=== PATIENT | male | born 1950 | race Caucasian/White ===

== ENCOUNTER 2017-08-17 06:36 | Emergency (ER) | payer OTHER, MEDICARE ==
[~2017-08-17] VITALS: Ht 172.7 cm; Wt 78.1 kg
[~2017-08-17 06:36] MED LIST: AUGMENTIN875 MG PO; CELEBREX200 MG PO; CIPRO500 MG PO; CLONAZEPAM1 MG PO; FLUOXETINE HCL60 MG PO; HYDROCORTISONE30 G2 PR; OMEPRAZOLE40 M1 PO; PROZAC20 MG PO; VITAMIN D2000 UNI1 PO
[2017-08-17] MEDS ORDERED: ZITHROMAX250 MG PO (08:51)
[2017-08-17 09:14] VITALS: BP 128/86
== END 2017-08-17 09:40 | disposition home or self-care (01) ==
LOC: EME 06:36
DX: J32.9 Chronic sinusitis, unspecified (principal); R51 Headache; J02.9 Acute pharyngitis, unspecified; I10 Essential (primary) hypertension; Z85.46 Personal history of malignant neoplasm of prostate
CPT/HCPCS: 71020; 99281; 99284

== ENCOUNTER 2017-10-26 22:05 | Inpatient (IN) | payer OTHER, MEDICARE ==
[~2017-10-26] VITALS: Ht 182.9 cm; Wt 79.0 kg
[~2017-10-26 22:05] MED LIST changes: +ARTHRITIS PAIN650 M5 PO; +LUPRON DEPOT3.75 M1 IM; +METOPROLOL SUCC50 MG PO; +PROBIOTIC1 EAC3 PO; +TRAMADOL HCL50 MG PO; +ZITHROMAX250 MG PO
[2017-10-27 05:52] VITALS: BP 149/91
[2017-10-27 10:50] VITALS: BP 123/72
[2017-10-27 12:45] VITALS: BP 115/69
[2017-10-27 15:28] VITALS: BP 113/65
[2017-10-27 17:45] VITALS: BP 122/74
[2017-10-27 19:35] VITALS: BP 122/73
[2017-10-28 00:31] VITALS: BP 135/62
[2017-10-28 04:20] VITALS: BP 137/73
[2017-10-28 06:53] LABS: HEMATOCRIT 33.4 % (38.0-50.0); MCV 90.3 FL (86-99)
[2017-10-28 06:54] LABS: HEMOGLOBIN 11.2 G/DL (12.5-16.6)
[2017-10-28 08:00] VITALS: BP 130/68
[2017-10-28 12:06] VITALS: BP 117/78
[2017-10-28 15:43] VITALS: BP 127/77
[2017-10-28 20:20] VITALS: BP 123/71
[2017-10-29 00:05] VITALS: BP 131/74
[2017-10-29 04:22] VITALS: BP 120/79
[2017-10-29 08:07] VITALS: BP 113/68
[2017-10-29 08:31] LABS: HEMATOCRIT 32.1 % (38.0-50.0); HEMOGLOBIN 10.5 G/DL (12.5-16.6); MCV 91.2 FL (86-99)
[2017-10-29] MEDS ORDERED: ELIQUIS2.5 MG PO (08:55)
[2017-10-29] MEDS ORDERED: OXYCODONE HCL5 MG PO (08:55)
[2017-10-29] MEDS ORDERED: ONDANSETRON ODT4 MG PO (11:08)
[2017-10-29 12:51] VITALS: BP 113/64
[2017-10-29 12:58] VITALS: BP 113/64
== END 2017-10-29 17:19 | disposition home health service (06) | DRG 470 ==
LOC: ENRESERV 22:05 → 2SOUTH 10-27 05:19 → 3WEST 10-27 10:33 → 2SOUTH 10-27 15:38 → 3WEST 10-29 17:19
PROVIDERS: Orthopaedic Surgery
PROC: 0SRB02A Replacement of Left Hip Joint with Metal on Polyethylene Synthetic Substitute, Uncemented, Open Approach (ICD-10-PCS; principal; 2017-10-27)
DX: M16.12 Unilateral primary osteoarthritis, left hip (principal); Z85.46 Personal history of malignant neoplasm of prostate
CPT/HCPCS: 73501; 85014; 85018; J0131; J0690; J1100; J2250; J2405; J7050; J7120